=== PATIENT | female | born 2000 | race African-American/Black ===

== ENCOUNTER 2023-11-23 19:19 | Emergency (ER) | payer MEDICAID, OTHER ==
[~2023-11-23] VITALS: Ht 165.1 cm; Wt 69.0 kg
[2023-11-23 19:49] VITALS: BP 135/91; PULSE 110; RESP 20; O2SAT 98
[2023-11-23] MEDS: BENZOCAINE (DENTAL) 20 % SPRAY 60ML MT ONE (20:00)
[2023-11-23] MEDS: KETOROLAC TROMETH 60MG/2ML VIAL IM ONE (20:00)
== END 2023-11-23 20:46 | disposition left against medical advice (07) ==
LOC: ER 19:19
DX: K08.89 Other specified disorders of teeth and supporting structures (principal); Z53.21 Procedure and treatment not carried out due to patient leaving prior to being seen by health care provider
CPT/HCPCS: 96372; 99281; J1885